=== PATIENT | male | born 1985 | race Caucasian/White ===

== ENCOUNTER 2022-08-12 22:47 | Inpatient (IN) | payer BC ==
[2022-08-13 00:35] VITALS: BMI 31.2
[2022-08-13] MEDS ORDERED: Acetaminophen 325 MG TAB PO PRN (00:50)
[2022-08-13] MEDS ORDERED: Ondansetron PF 4 MG/2 ML Vial IVP PRN ×3 (00:50→16:08)
[2022-08-13] MEDS ORDERED: Morphine 4 MG/ML VIAL SLOW IVP PRN (00:52)
[2022-08-13] MEDS ORDERED: Sodium Chloride 0.9% 1,000 ML IV SCH (01:00)
[2022-08-13 01:45] LABS: #Lymphocytes 0.8 thou/uL (1.20-3.40); #Monocytes 0.9 thou/uL (0.11-0.59); #Neutrophils 15.7 thou/uL (1.40-6.50); %Eosinophils 0.1 % (0.0-10.0); %Lymphocytes 4.7 % (21.0-51.0); %Monocytes 5.3 % (0.0-10.0); %Neutrophils 89.8 % (42.0-75.0); Hemoglobin 15.6 g/dL (14.0-18.0); Mean Corpuscular Hemoglobin 32.2 pg (27.0-31.0); Mean Corpuscular Volume 92.2 fl (78.0-98.0); Mean Platelet Volume 7.4 fL (7.4-10.4); Platelet Count 292 10x3/uL (130-400); RBC Distribution Width 11.8 % (11.5-14.5); Red Blood Cell (RBC) Count 4.85 mill/uL (4.70-6.10); White Blood Cell (WBC) Count 17.5 10x3/uL (4.8-10.8)
[2022-08-13 02:06] LABS: ALT (SGPT) 320 U/L (8-55); AST (SGOT) 298 U/L (5-34); Albumin 4.1 g/dL (3.5-5.0); Alkaline Phosphatase 124 U/L (40-110); Anion Gap 16 mmol/L (10-20); BUN (Urea Nitrogen) 18 mg/dL (8.9-20.6); Bilirubin, Total 2.3 mg/dL (0.2-1.2); Calc. Creatinine Clearance 120 mL/min (70-130); Calcium 9.4 mg/dL (7.8-10.44); Carbon Dioxide 20 mmol/L (22-29); Cardiac Risk 4.2 (Less than 4.5); Chloride 108 mmol/L (98-107); Cholesterol 174 mg/dl (< 200 Desired); Estimated GFR 79; Globulin 2.8 g/dL (2.4-3.5); Glucose 156 mg/dL (70-105); HDL Cholesterol 41 mg/dL (>60 Neg Risk); LDL Cholesterol, Calculated 124 mg/dL; Potassium 4.2 mmol/L (3.5-5.1); Protein, Total 6.9 g/dL (6.0-8.3); Sodium 140 mmol/L (136-145); Triglycerides 47 mg/dL (Less than 150)
[2022-08-13] MEDS ORDERED: ALPRAZolam 0.5 MG TAB PO PRN (02:15)
[2022-08-13] MEDS: Lactated Ringer's 1,000 ML IV SCH ×3 (02:23→13:58)
[2022-08-13 02:31] LABS: Lactic Acid 3.3 mmol/L (0.5-2.2)
[2022-08-13] MEDS ORDERED: Promethazine HCl 25 MG/ML VIAL IM PRN ×3 (02:47→16:08)
[2022-08-13] MEDS ORDERED: HYDROmorphone 10 mg/100 ml CADD IVPB PRN ×2 (02:47→16:08)
[2022-08-13] MEDS ORDERED: diphenhydrAMINE 50 MG/ML VIAL IVP PRN ×2 (02:47→16:08)
[2022-08-13] MEDS ORDERED: diphenhydrAMINE 50 MG/ML VIAL IM PRN ×2 (02:47→16:08)
[2022-08-13] MEDS ORDERED: Naloxone HCl 0.4 mg/ml Vial IV PRN ×2 (02:47→16:08)
[2022-08-13] MEDS ORDERED: diphenhydrAMINE 25 MG CAP PO PRN ×2 (02:47→16:08)
[2022-08-13] MEDS ORDERED: Zolpidem Tartrate 5 MG TAB PO PRN ×2 (02:47→16:08)
[2022-08-13] MEDS ORDERED: Communication Order-Pharmacy FS SCH ×2 (03:00→16:15)
[2022-08-13] MEDS: Piperacillin/Tazobactam 3.375 GM in Sodium Chloride 0.9% 100 ML IVPB SCH ×2 (03:54→17:50)
[2022-08-13 06:55] LABS: #Lymphocytes 0.8 thou/uL (1.20-3.40); #Monocytes 0.9 thou/uL (0.11-0.59); #Neutrophils 12.9 thou/uL (1.40-6.50); %Basophils 0.2 % (0.0-1.0); %Lymphocytes 5.7 % (21.0-51.0); %Monocytes 6.4 % (0.0-10.0); %Neutrophils 87.7 % (42.0-75.0); Hemoglobin 15.7 g/dL (14.0-18.0); Mean Corpuscular HGB CONC 34.6 g/dL (32.0-36.0); Mean Corpuscular Hemoglobin 32.3 pg (27.0-31.0); Mean Corpuscular Volume 93.6 fl (78.0-98.0); Mean Platelet Volume 7.6 fL (7.4-10.4); Platelet Count 290 10x3/uL (130-400); Red Blood Cell (RBC) Count 4.87 mill/uL (4.70-6.10); White Blood Cell (WBC) Count 14.7 10x3/uL (4.8-10.8)
[2022-08-13 07:06] LABS: Lactic Acid 3.8 mmol/L (0.5-2.2)
[2022-08-13 07:11] LABS: ALT (SGPT) 331 U/L (8-55); AST (SGOT) 235 U/L (5-34); Albumin 4.2 g/dL (3.5-5.0); Alkaline Phosphatase 130 U/L (40-110); Anion Gap 16 mmol/L (10-20); BUN (Urea Nitrogen) 16 mg/dL (8.9-20.6); Bilirubin, Total 1.8 mg/dL (0.2-1.2); Calc. Creatinine Clearance 126 mL/min (70-130); Calcium 9.3 mg/dL (7.8-10.44); Carbon Dioxide 22 mmol/L (22-29); Chloride 107 mmol/L (98-107); Estimated GFR 84; Globulin 2.8 g/dL (2.4-3.5); Glucose 166 mg/dL (70-105); Potassium 4.3 mmol/L (3.5-5.1); Sodium 141 mmol/L (136-145)
[2022-08-13] MEDS: Enoxaparin Sodium 40 MG/0.4 ML SYRINGE SC SCH (08:59)
[2022-08-13] MEDS: Sertraline 100 MG TAB PO SCH ×2 (09:00→20:52)
[2022-08-13] MEDS: Pantoprazole 40 MG VIAL IVP SCH (09:00)
[2022-08-13] MEDS ORDERED: Iopamidol 30 ML ONE ×2 (10:13→13:45)
[2022-08-13] MEDS ORDERED: Bupivacaine/Epinephrine 0.25% 30 ML VIAL ONE (10:13)
[2022-08-13] MEDS ORDERED: Fentanyl 250 MCG/5 ML VIAL ONE (10:42)
[2022-08-13] MEDS ORDERED: PHENYLEPHRINE-NS 100 MCG/ML 10 ML SYRINGE ONE (11:42)
[2022-08-13] MEDS ORDERED: PROPOFOL 200 MG/20 ML VIAL ONE (11:42)
[2022-08-13] MEDS ORDERED: Dexamethasone 20 MG/5 ML VIAL ONE (11:42)
[2022-08-13] MEDS ORDERED: Rocuronium Bromide 10 MG/ML (10ML VIAL) ONE (11:42)
[2022-08-13] MEDS ORDERED: Lidocaine 1% PF 5 ML VIAL ONE (11:42)
[2022-08-13] MEDS ORDERED: NEOSTIGMINE 3 MG/3 ML SYR 3 MG/3 ML SYRINGE ONE (14:25)
[2022-08-13] MEDS ORDERED: Glycopyrrolate 0.2 MG/ML 5 ML SYRINGE ONE (14:25)
[2022-08-13] MEDS ORDERED: Ondansetron PF 4 MG/2 ML Vial ONE (14:25)
[2022-08-13] MEDS ORDERED: Metoclopramide HCl 10 MG/2 ML VIAL ONE (14:25)
[2022-08-13] MEDS ORDERED: Indomethacin 50 MG SUPP ONE (14:33)
[2022-08-13] MEDS ORDERED: Ondansetron HCl/PF 4 MG/2 ML Vial IVP PRN (16:07)
[2022-08-13] MEDS ORDERED: Promethazine HCl 25 MG/ML VIAL IVPB PRN (16:07)
[2022-08-13] MEDS ORDERED: traMADol HCl 50 MG TAB PO PRN (17:45)
[2022-08-13] MEDS ORDERED: Acetaminophen 325 MG TAB PO SCH (18:00)
[2022-08-13] MEDS: Ketorolac Tromethamine 30 MG/ML VIAL IVP SCH (18:56)
[2022-08-13] MEDS: Acetaminophen 500 MG TAB PO SCH (18:57)
[2022-08-13] MEDS: traMADol HCl 50 MG TAB PO SCH (18:57)
[2022-08-14] MEDS: Acetaminophen 500 MG TAB PO SCH ×3 (00:01→12:07)
[2022-08-14] MEDS: Piperacillin/Tazobactam 3.375 GM in Sodium Chloride 0.9% 100 ML IVPB SCH ×2 (00:01→03:43)
[2022-08-14] MEDS: traMADol HCl 50 MG TAB PO SCH ×3 (00:01→12:06)
[2022-08-14] MEDS: Ketorolac Tromethamine 30 MG/ML VIAL IVP SCH ×3 (00:30→12:07)
[2022-08-14] MEDS: Lactated Ringer's 1,000 ML IV SCH ×3 (01:40→08:14)
[2022-08-14 07:58] LABS: Lactic Acid 2.1 mmol/L (0.5-2.2)
[2022-08-14 08:00] LABS: ALT (SGPT) 193 U/L (8-55); AST (SGOT) 118 U/L (5-34); Albumin 3.4 g/dL (3.5-5.0); Alkaline Phosphatase 84 U/L (40-110); Anion Gap 13 mmol/L (10-20); BUN (Urea Nitrogen) 19 mg/dL (8.9-20.6); Bilirubin, Total 1.7 mg/dL (0.2-1.2); Calc. Creatinine Clearance 148 mL/min (70-130); Calcium 8.2 mg/dL (7.8-10.44); Carbon Dioxide 24 mmol/L (22-29); Chloride 103 mmol/L (98-107); Estimated GFR 102; Globulin 2.6 g/dL (2.4-3.5); Glucose 137 mg/dL (70-105); Potassium 3.9 mmol/L (3.5-5.1); Sodium 136 mmol/L (136-145)
[2022-08-14] MEDS: Sertraline 100 MG TAB PO SCH (08:07)
[2022-08-14] MEDS: Pantoprazole 40 MG VIAL IVP SCH (08:08)
[2022-08-14] MEDS: Enoxaparin Sodium 40 MG/0.4 ML SYRINGE SC SCH (08:11)
[2022-08-14 08:13] LABS: Lipase 1502 U/L (8-78)
[2022-08-14 08:30] LABS: Band 7 % (5-11); Hemoglobin 13.2 g/dL (14.0-18.0); Lymphocytes 7 % (21-51); MDiff Complete? YES; Mean Corpuscular HGB CONC 32.8 g/dL (32.0-36.0); Mean Corpuscular Hemoglobin 31.4 pg (27.0-31.0); Mean Corpuscular Volume 95.7 fl (78.0-98.0); Mean Platelet Volume 7.3 fL (7.4-10.4); Metamyelocyte 1 % (0-0); Monocytes 7 % (0-10); Neutrophil 78 % (42-75); Platelet Count 231 10x3/uL (130-400); Platelet Morphology Comment Appears Adequate; RBC Distribution Width 12.1 % (11.5-14.5); Red Blood Cell (RBC) Count 4.21 mill/uL (4.70-6.10); White Blood Cell (WBC) Count 22.1 10x3/uL (4.8-10.8)
[2022-08-14 08:44] VITALS: TEMP 98.5
[2022-08-14 11:48] VITALS: BP 109/66
[2022-08-16] MEDS ORDERED: FLU VACC QS2022-23(6MOS UP)/PF 60 MCG/0.5 ML SYRINGE IM ONE (09:00)
== END 2022-08-14 13:01 | disposition home or self-care (01) | DRG 417 ==
LOC: T4-B 22:47
PROVIDERS: ADMIT Internal Medicine; ATTEND Internal Medicine
PROC: 0FT44ZZ Resection of Gallbladder, Percutaneous Endoscopic Approach (ICD-10-PCS; principal; 2022-08-13)
PROC: BF141ZZ Fluoroscopy of Gallbladder, Bile Ducts and Pancreatic Ducts using Low Osmolar Contrast (ICD-10-PCS; 2022-08-13)
PROC: 0F798ZZ Dilation of Common Bile Duct, Via Natural or Artificial Opening Endoscopic (ICD-10-PCS; 2022-08-13)
DX: K80.62 Calculus of gallbladder and bile duct with acute cholecystitis without obstruction (principal); K85.10 Biliary acute pancreatitis without necrosis or infection; K29.80 Duodenitis without bleeding; K57.10 Diverticulosis of small intestine without perforation or abscess without bleeding; K21.9 Gastro-esophageal reflux disease without esophagitis; K66.0 Peritoneal adhesions (postprocedural) (postinfection); F39 Unspecified mood [affective] disorder; F41.9 Anxiety disorder, unspecified; Z79.899 Other long term (current) drug therapy; Z80.0 Family history of malignant neoplasm of digestive organs
CPT/HCPCS: 36415; 47532; 74330; 76705; 80053; 80061; 83605; 83690; 85025; 87040; 88304; C1889; C9113; J1100; J1885; J2270; J2405; J2543; J2704; J2765; J3010; J3490; J7050; J7120; Q9967; U0003; U0005

== ENCOUNTER 2022-08-16 09:36 | Emergency (ER) | payer BC ==
[2022-08-16 10:11] LABS: Hemoglobin 13.6 g/dL (14.0-18.0); Mean Corpuscular HGB CONC 34.1 g/dL (32.0-36.0); Mean Corpuscular Hemoglobin 32.6 pg (27.0-31.0); Mean Corpuscular Volume 95.7 fl (78.0-98.0); Mean Platelet Volume 8.1 fL (7.4-10.4); Platelet Count 242 10x3/uL (130-400); RBC Distribution Width 12.1 % (11.5-14.5); Red Blood Cell (RBC) Count 4.18 mill/uL (4.70-6.10); White Blood Cell (WBC) Count 20.7 10x3/uL (4.8-10.8)
[2022-08-16 10:37] LABS: Band 11 % (5-11); Lymphocytes 6 % (21-51); MDiff Complete? YES; Monocytes 11 % (0-10); Neutrophil 71 % (42-75); Platelet Morphology Comment Appears Adequate; RBC Morphology Normal; Reactive Lymphocytes 1 % (0-10)
[2022-08-16 10:45] LABS: ALT (SGPT) 100 U/L (8-55); AST (SGOT) 48 U/L (5-34); Albumin 3.5 g/dL (3.5-5.0); Alkaline Phosphatase 93 U/L (40-110); Anion Gap 17 mmol/L (10-20); BUN (Urea Nitrogen) 13 mg/dL (8.9-20.6); Bilirubin, Total 2.2 mg/dL (0.2-1.2); Calc. Creatinine Clearance 0 mL/min (70-130); Calcium 8.3 mg/dL (7.8-10.44); Carbon Dioxide 27 mmol/L (22-29); Chloride 94 mmol/L (98-107); Estimated GFR 117; Globulin 2.7 g/dL (2.4-3.5); Glucose 117 mg/dL (70-105); Lipase 184 U/L (8-78); Potassium 3.5 mmol/L (3.5-5.1); Protein, Total 6.2 g/dL (6.0-8.3); Sodium 134 mmol/L (136-145)
[2022-08-16] MEDS ORDERED: Cefepime 2 GM VIAL ONE (11:09)
[2022-08-16 11:43] LABS: SARS-CoV-2 NAA Rapid Test Not Detected (NotDetected)
[2022-08-16] MEDS ORDERED: VANCOMYCIN 2 GRAM/500 ML BAG 2 GM in Premix Bag 1 BAG IVPB SCH (11:45)
[2022-08-16] MEDS ORDERED: Ketorolac Tromethamine 30 MG/ML VIAL ONE (11:58)
[2022-08-16] MEDS ORDERED: Iopamidol-370 76% 500 ML 1 ML ONE (12:56)
[2022-08-16] MEDS ORDERED: Orphenadrine Citrate 60 MG/2 ML VIAL ONE (14:13)
== END 2022-08-16 15:30 | disposition home or self-care (01) ==
LOC: ERS 09:36
DX: J18.9 Pneumonia, unspecified organism (principal); R09.02 Hypoxemia; K56.7 Ileus, unspecified; K85.90 Acute pancreatitis without necrosis or infection, unspecified; R74.01 Elevation of levels of liver transaminase levels; Z20.822 Contact with and (suspected) exposure to COVID-19
CPT/HCPCS: 36415; 71045; 74177; 80053; 82248; 83605; 83690; 85025; 87040; 87804; 93005; 94760; 96365; 96372; 96375; J0692; J1885; J2360; J3370; Q9967; U0002

== ENCOUNTER 2022-11-10 10:40 | Emergency (ER) | payer BC ==
[2022-11-10 11:25] LABS: Hemoglobin 13.6 g/dL (14.0-18.0); Mean Corpuscular HGB CONC 32.8 g/dL (32.0-36.0); Mean Corpuscular Volume 91.6 fl (78.0-98.0); Mean Platelet Volume 7.8 fL (7.4-10.4); Platelet Count 214 10x3/uL (130-400); RBC Distribution Width 12.1 % (11.5-14.5); Red Blood Cell (RBC) Count 4.54 mill/uL (4.70-6.10); White Blood Cell (WBC) Count 10.7 10x3/uL (4.8-10.8)
[2022-11-10 11:45] LABS: ALT (SGPT) 47 U/L (8-55); AST (SGOT) 40 U/L (5-34); Albumin 3.8 g/dL (3.5-5.0); Alkaline Phosphatase 124 U/L (40-110); Anion Gap 17 mmol/L (10-20); BUN (Urea Nitrogen) 13 mg/dL (8.9-20.6); Bilirubin, Total 1.9 mg/dL (0.2-1.2); Calc. Creatinine Clearance 0 mL/min (70-130); Calcium 9.7 mg/dL (7.8-10.44); Carbon Dioxide 22 mmol/L (22-29); Chloride 100 mmol/L (98-107); Estimated GFR 86; Globulin 3.3 g/dL (2.4-3.5); Glucose 122 mg/dL (70-105); Potassium 4.5 mmol/L (3.5-5.1); Protein, Total 7.1 g/dL (6.0-8.3); Sodium 134 mmol/L (136-145)
[2022-11-10] MEDS ORDERED: Iopamidol-370 76% 500 ML MDV (1 ML CHARGE) ONE (11:46)
[2022-11-10 12:25] LABS: Bacteria/HPF 2+ HPF (None Seen); Bilirubin 1+ (Negative); Blood, Urine Trace (Negative); Glucose, Urine (Dipstick) 30 mg/dL (Negative); Ketone, Urine Trace mg/dL (Negative); Leukocyte Negative Leu/uL (Negative); Nitrite Negative (Negative); Protein, Urine (Dipstick) 200 mg/dL (Neg-Trace); RBC/HPF 0-3 HPF (0-3); Specific Gravity, Urine 1.044 (1.002-1.036); Squamous Epithelial 0-3 HPF (0-3); pH, Urine 5.5 (5.0-9.0)
[2022-11-10 12:30] LABS: Clarity Cloudy (Clear)
[2022-11-10 12:39] LABS: Band 28 % (5-11); Lymphocytes 11 % (21-51); MDiff Complete? YES; Monocytes 15 % (0-10); Neutrophil 46 % (42-75); Platelet Morphology Comment Appears Adequate; Polychromasia SLIGHT = 2-3 cells (100X) (0-2/hpf)
[2022-11-10 12:48] LABS: SARS-CoV-2 NAA Rapid Test Not Detected (NotDetected)
[2022-11-10 14:29] LABS: Lactic Acid 1.5 mmol/L (0.5-2.2)
== END 2022-11-10 14:42 | disposition home or self-care (01) ==
LOC: ERS 10:40
DX: J18.9 Pneumonia, unspecified organism (principal); E86.0 Dehydration; Z20.822 Contact with and (suspected) exposure to COVID-19
CPT/HCPCS: 36415; 71045; 74177; 80053; 81003; 81015; 83605; 83690; 85025; 87040; 93005; 94760; 96360; Q9967

== ENCOUNTER 2022-11-20 10:03 | Emergency (ER) | payer BC ==
[~2022-11-20 10:03] MED LIST: Iopamidol-370 76% 500 ML MDV (1 ML CHARGE) ONE
[2022-11-20 10:46] LABS: Hemoglobin 12.1 g/dL (14.0-18.0); Mean Corpuscular HGB CONC 32.8 g/dL (32.0-36.0); Mean Corpuscular Hemoglobin 29.6 pg (27.0-31.0); Mean Corpuscular Volume 90.2 fl (78.0-98.0); Mean Platelet Volume 6.6 fL (7.4-10.4); Platelet Count 493 10x3/uL (130-400); RBC Distribution Width 12.7 % (11.5-14.5); Red Blood Cell (RBC) Count 4.09 mill/uL (4.70-6.10); White Blood Cell (WBC) Count 21.6 10x3/uL (4.8-10.8)
[2022-11-20] MEDS ORDERED: Lorazepam 1 MG TAB ONE (11:28)
[2022-11-20] MEDS ORDERED: Cefepime 1 GM VIAL ONE (11:28)
[2022-11-20 11:34] LABS: Band 25 % (5-11); Lymphocytes 6 % (21-51); MDiff Complete? YES; Metamyelocyte 1 % (0-0); Monocytes 6 % (0-10); Neutrophil 62 % (42-75); Platelet Morphology Comment Appears Increased; Polychromasia SLIGHT = 2-3 cells (100X) (0-2/hpf)
[2022-11-20] MEDS ORDERED: metroNIDAZOLE 500 MG/100 ML BAG ONE (11:35)
[2022-11-20] MEDS ORDERED: VANCOMYCIN 1.75 GM/500 ML BAG 1.75 GM in Premix Bag 1 BAG IVPB SCH (11:45)
[2022-11-20 11:55] LABS: ALT (SGPT) 35 U/L (8-55); AST (SGOT) 23 U/L (5-34); Albumin 3.1 g/dL (3.5-5.0); Alkaline Phosphatase 194 U/L (40-110); Anion Gap 16 mmol/L (10-20); BUN (Urea Nitrogen) 14 mg/dL (8.9-20.6); Bilirubin, Total 1.8 mg/dL (0.2-1.2); Calc. Creatinine Clearance 0 mL/min (70-130); Calcium 8.3 mg/dL (7.8-10.44); Carbon Dioxide 23 mmol/L (22-29); Chloride 98 mmol/L (98-107); Estimated GFR 114; Globulin 3.5 g/dL (2.4-3.5); Glucose 133 mg/dL (70-105); Potassium 3.4 mmol/L (3.5-5.1); Protein, Total 6.6 g/dL (6.0-8.3); Sodium 134 mmol/L (136-145)
[2022-11-20 11:56] LABS: INR-International Normal Ratio 1.1
[2022-11-20 11:57] LABS: PTT 29.1 sec (22.9-36.1)
[2022-11-20 13:41] LABS: Bacteria/HPF None Seen HPF (None Seen); Bilirubin 1+ (Negative); Blood, Urine Negative (Negative); Clarity Turbid (Clear); Glucose, Urine (Dipstick) Normal (Negative); Ketone, Urine Trace mg/dL (Negative); Leukocyte Negative Leu/uL (Negative); Nitrite Negative (Negative); Protein, Urine (Dipstick) 70 mg/dL (Neg-Trace); RBC/HPF 0-3 HPF (0-3); Specific Gravity, Urine 1.028 (1.002-1.036); Squamous Epithelial 0-3 HPF (0-3); WBC/HPF 0-3 HPF (0-3)
[2022-11-20] MEDS ORDERED: Ketorolac Tromethamine 30 MG/ML VIAL ONE (15:44)
[2022-11-20] MEDS ORDERED: Pantoprazole 40 MG VIAL ONE (17:37)
[2022-11-20] MEDS ORDERED: Lidocaine 2% Viscous Solution 10 ML, Aluminum & Magnesium Hydroxide 30 ML SSW SCH (17:45)
== END 2022-11-20 18:08 | disposition short-term general hospital (02) ==
LOC: ERS 10:03
DX: K85.92 Acute pancreatitis with infected necrosis, unspecified (principal)
CPT/HCPCS: 36415; 71045; 74177; 80053; 81003; 81015; 83605; 83690; 85025; 85610; 85730; 87040; 87086; 93005; 96365; 96367; 96375; C9113; J0692; J1885; J3370; Q9967